=== PATIENT | female | born 1975 | race African-American/Black ===

== ENCOUNTER 2019-02-13 18:09 | Observation (INO) ==
[2019-02-13 19:08] LABS: Basophils % 0.5 % (0.0-0.8); Eosinophils # 0.3 10*3/uL (0.0-0.87); Eosinophils % 3.7 % (0.00-10.9); Hematocrit 39.6 VOL% (35.7-47.0); Hemoglobin 12.3 GM/DL (12.0-16.0); Immature Granulocytes % 0.4 %; Immature Granulocytes Absolute 0.03 #; Lymphocytes # 2.1 10*3/uL (1.4-4.0); Mean Corpuscular HGB Conc 31.1 GM/DL (32-36); Mean Platelet Volume 9.8 FL (9.6-12.0); Monocytes % 5.3 % (1.7-12.7); Neutrophils % 61.1 % (38.7-73.9); Platelet Count 426 T/CUMM (130-400); Red Blood Count 4.83 MC/CUMM (3.8-5.5); Red Cell Distribution Width 14.8 % (9.3-17.3); White Blood Count 7.3 T/CUMM (4-12)
[2019-02-13 19:29] LABS: Alanine Aminotransferase 28 U/L (13-56); Albumin 3.7 G/DL (3.4-5.0); Alkaline Phosphatase 89 U/L (45-117); Aspartate Amino Transferase 26 U/L (0-37); Bilirubin,Total < 0.39 MG/DL (0.2-1.0); Blood Urea Nitrogen 11 MG/DL (7-18); Calcium 9.6 MG/DL (8.5-10.1); Glucose 109 MG/DL (74-106); Osmolality,Calculated 274.7 MOS/KG (273-304); Total Protein 8.5 G/DL (6.4-8.3)
[2019-02-13] MEDS ORDERED: fentaNYL 100 MCG/2 ML VIAL IV STA (20:37)
[2019-02-13] MEDS ORDERED: ONDANSETRON 4 MG/2 ML VIAL ONE (20:51)
[2019-02-13] MEDS ORDERED: ONDANSETRON 4 MG/2 ML VIAL IV STA (21:05)
[2019-02-13] MEDS ORDERED: DEXTROSE 50% 25 GM/50 ML VIAL IV PRN (22:50)
[2019-02-13] MEDS ORDERED: GLUCAGON 1 MG VIAL IM PRN (22:50)
[2019-02-13] MEDS: INSULIN REGULAR 100 UNIT/ML SUBCUT SCH (23:11)
[2019-02-13] MEDS: traMADol 50 MG TABLET PO PRN (23:46)
[2019-02-13] MEDS: DIVALPROEX ER 500 MG TABLET PO SCH (23:47)
[2019-02-13] MEDS: MIRTAZAPINE 30 MG TABLET PO SCH (23:48)
[2019-02-14] MEDS: HYDROmorphone 2 MG/1 ML VIAL IV PRN ×3 (01:19→21:22)
[2019-02-14 01:53] LABS: Hematocrit 33.9 VOL% (35.7-47.0)
[2019-02-14 01:54] LABS: Basophils # 0.1 10*3/uL (0.0-0.2); Basophils % 0.7 % (0.0-0.8); Eosinophils # 0.3 10*3/uL (0.0-0.87); Eosinophils % 3.5 % (0.00-10.9); Hematocrit 34.7 VOL% (35.7-47.0); Hemoglobin 10.8 GM/DL (12.0-16.0); Immature Granulocytes % 0.3 %; Immature Granulocytes Absolute 0.02 #; Lymphocytes # 2.2 10*3/uL (1.4-4.0); Lymphocytes % 30.1 % (21.3-54.2); Mean Corpuscular HGB Conc 31.1 GM/DL (32-36); Mean Corpuscular Volume 82.4 FL (87-102); Mean Platelet Volume 10.2 FL (9.6-12.0); Monocytes % 5.4 % (1.7-12.7); Platelet Count 382 T/CUMM (130-400); Red Blood Count 4.21 MC/CUMM (3.8-5.5); White Blood Count 7.4 T/CUMM (4-12)
[2019-02-14 02:05] LABS: INR 0.9; PT Patient Result 10.3 SECS
[2019-02-14 02:12] LABS: Calcium 9.5 MG/DL (8.5-10.1); Osmolality,Calculated 278.5 MOS/KG (273-304)
[2019-02-14 06:53] LABS: Hematocrit 34.7 VOL% (35.7-47.0); Hemoglobin 10.6 GM/DL (12.0-16.0)
[2019-02-14] MEDS ORDERED: POTASSIUM CHLORIDE 20 MEQ TABLET PO ONE (07:13)
[2019-02-14] MEDS: amLODIPine 5 MG TABLET PO SCH (08:33)
[2019-02-14] MEDS: DOCUSATE SODIUM 100 MG CAPSULE PO SCH (08:33)
[2019-02-14] MEDS: hydroCHLOROthiazide 25 MG TABLET PO SCH (08:33)
[2019-02-14] MEDS: traMADol 50 MG TABLET PO PRN (08:33)
[2019-02-14] MEDS: PANTOPRAZOLE 40 MG TABLET PO SCH (08:34)
[2019-02-14] MEDS: ASCORBIC ACID 500 MG TABLET PO SCH (08:34)
[2019-02-14] MEDS: INSULIN REGULAR 100 UNIT/ML SUBCUT SCH ×4 (09:13→21:21)
[2019-02-14] MEDS: ONDANSETRON 4 MG/2 ML VIAL IV PRN ×2 (12:04→21:55)
[2019-02-14 13:20] LABS: Hematocrit 33.7 VOL% (35.7-47.0); Hemoglobin 10.8 GM/DL (12.0-16.0)
[2019-02-14] MEDS ORDERED: BISACODYL 5 MG TABLET PO ONE (14:00)
[2019-02-14] MEDS ORDERED: POLYETHYLENE GLYCOL POWDER 255 GM BOTTLE PO ONE (18:00)
[2019-02-14 19:38] LABS: Hematocrit 35.4 VOL% (35.7-47.0); Hemoglobin 11.2 GM/DL (12.0-16.0)
[2019-02-14] MEDS: DIVALPROEX ER 500 MG TABLET PO SCH (21:21)
[2019-02-14] MEDS: MIRTAZAPINE 30 MG TABLET PO SCH (21:21)
[2019-02-15 05:27] LABS: Basophils # 0.1 10*3/uL (0.0-0.2); Basophils % 0.7 % (0.0-0.8); Eosinophils # 0.2 10*3/uL (0.0-0.87); Eosinophils % 3.1 % (0.00-10.9); Immature Granulocytes % 0.1 %; Immature Granulocytes Absolute 0.01 #; Lymphocytes # 1.9 10*3/uL (1.4-4.0); Lymphocytes % 28.1 % (21.3-54.2); Mean Corpuscular HGB Conc 31.4 GM/DL (32-36); Mean Corpuscular Volume 82.5 FL (87-102); Mean Platelet Volume 10.2 FL (9.6-12.0); Monocytes % 5.2 % (1.7-12.7); Neutrophils % 62.8 % (38.7-73.9); Platelet Count 358 T/CUMM (130-400); Red Blood Count 4.24 MC/CUMM (3.8-5.5); Red Cell Distribution Width 15.2 % (9.3-17.3); White Blood Count 6.8 T/CUMM (4-12)
[2019-02-15] MEDS ORDERED: MAGNESIUM CITRATE 300 ML BOTTLE PO ONE (06:00)
[2019-02-15 06:26] LABS: Calcium 9.2 MG/DL (8.5-10.1); Osmolality,Calculated 274.7 MOS/KG (273-304)
[2019-02-15] MEDS ORDERED: POTASSIUM CHLORIDE 20 MEQ TABLET PO PRN (07:18)
[2019-02-15] MEDS ORDERED: POTASSIUM CHLORIDE 20 MEQ TABLET PO ONE ×2 (07:18→10:24)
[2019-02-15] MEDS: INSULIN REGULAR 100 UNIT/ML SUBCUT SCH (08:27)
[2019-02-15] MEDS ORDERED: LIDOCAINE 2% 5 ML VIAL ONE (09:00)
[2019-02-15] MEDS ORDERED: PROPOFOL 200 MG/20 ML VIAL IV ONE (09:00)
[2019-02-15 09:41] VITALS: BP 117/89
[2019-02-15] MEDS ORDERED: LACTATED RINGERS 1,000 ML IV SCH (10:00)
[2019-02-15] MEDS: amLODIPine 5 MG TABLET PO SCH (10:02)
[2019-02-15] MEDS: hydroCHLOROthiazide 25 MG TABLET PO SCH (10:02)
[2019-02-15] MEDS: DOCUSATE SODIUM 100 MG CAPSULE PO SCH (10:02)
[2019-02-15] MEDS: ASCORBIC ACID 500 MG TABLET PO SCH (10:02)
[2019-02-15] MEDS: PANTOPRAZOLE 40 MG TABLET PO SCH (10:03)
== END 2019-02-15 11:20 | disposition home or self-care (01) ==
LOC: N.ED 18:09 → N.EDINP 18:09 → N.5E 22:17
PROVIDERS: ADMIT Family Medicine; ATTEND Family Medicine